=== PATIENT | male | born 1985 | race Caucasian/White ===

== ENCOUNTER 2017-07-21 08:35 | Emergency (ER) | payer BC, OTHER ==
[2017-07-21 08:53] VITALS: BP 165/112; PULSE 84; TEMP 98; BMI 28.8
--- NOTE | 2017-07-21 09:09 | PDOC ---
History of Present Illness <Dorina Zuniga - Last Filed: 07/21/17 09:16> - General History Source: Patient Exam Limitations: No Limitations - History of Present Illness Initial Comments: 07/21/17 09:32 The patient is a 32-year-old female with no significant past medical history, and presents to the emergency department with an itchy rash for 1 week. He reports the rash started as two bumps on his anterior forearm, and now complains of redness and itchiness at his neck and face as well. He denies any rash on people he has been in contact with. He denies any changes in his diet, skin care, or other habits. The patient denies chest pain, shortness of breath, headache and dizziness. The patient denies fever, chills, nausea, vomit, diarrhea and constipation. The patient denies dysuria, frequency, urgency and hematuria. Allergies: NKDA Past Surgical History: None reported Social History: No toxic habits reported <Diana Chaudhry - Last Filed: 07/21/17 09:34> - General Chief Complaint: Rash Stated Complaint: RASH Time Seen by Provider: 07/21/17 09:09 Past History - Past Medical History Anemia: No Asthma: No Cancer: No Cardiac Disorders: No CVA: No COPD: No CHF: No Dementia: No Diabetes: No GI Disorders: No Disorders: No HTN: No Hypercholesterolemia: No Liver Disease: No Seizures: No Thyroid Disease: No - Surgical History Abdominal Surgery: No Appendectomy: No Cardiac Surgery: No Cholecystectomy: No Lung Surgery: No Neurologic Surgery: No Orthopedic Surgery: Yes (ORIF Both Wrists) - Suicide/Smoking/Psychosocial Hx Smoking History: Never smoked Hx Alcohol Use: Yes (SOCIAL) Drug/Substance Use Hx: No Substance Use Type: None Hx Substance Use Treatment: No <Dorina Zuniga - Last Filed: 07/21/17 09:16> <Diana Chaudhry - Last Filed: 07/21/17 09:34> - Past Medical History Allergies/Adverse Reactions: Allergies Allergy/AdvReac Type Severity Reaction Status Date / Time No Known Allergies Allergy Verified 07/21/17 08:53 Home Medications: Ambulatory Orders Multivitamins [Tab-A-Vit -] 1 tab PO DAILY 06/06/15 Hydrocortisone 2.5% Lotion [Hytone 2.5% Lotion -] 1 applic TP QID #1 bottle 08/07 Review of Systems - Review of Systems Able to Perform ROS?: Yes Comments:: 07/21/17 09:33 GENERAL/CONSTITUTIONAL: No fever or chills. No weakness. HEAD, EYES, EARS, NOSE AND THROAT: No change in vision. No ear pain or discharge. No sore throat. CARDIOVASCULAR: No chest pain or shortness of breath. RESPIRATORY: No cough, wheezing, or hemoptysis. GASTROINTESTINAL: No nausea, vomiting, diarrhea or constipation. GENITOURINARY: No dysuria, frequency, or change in urination. MUSCULOSKELETAL: No joint or muscle swelling or pain. No neck or back pain. SKIN: (+) Itchy rash. NEUROLOGIC: No headache, vertigo, loss of consciousness, or change in strength/ sensation. ENDOCRINE: No increased thirst. No abnormal weight change. HEMATOLOGIC/LYMPHATIC: No anemia, easy bleeding, or history of blood clots. ALLERGIC/IMMUNOLOGIC: No hives or skin allergy. <Diana Chaudhry - Last Filed: 07/21/17 09:34> *Physical Exam - Vital Signs Last Vital Signs Temp Pulse Resp BP Pulse Ox 98 F 84 18 165/112 99 07/21/17 08:51 07/21/17 08:51 07/21/17 08:51 07/21/17 08:51 07/21/17 08:51 <Dorina Zuniga - Last Filed: 07/21/17 09:16> - Vital Signs Last Vital Signs Temp Pulse Resp BP Pulse Ox 98 F 84 18 165/112 99 07/21/17 08:51 07/21/17 08:51 07/21/17 08:51 07/21/17 08:51 07/21/17 08:51 - Physical Exam Comments: 07/21/17 09:33 GENERAL: Awake, alert, and fully oriented, in no acute distress HEAD: No signs of trauma EYES: PERRLA, EOMI, sclera anicteric, conjunctiva clear ENT: Auricles normal inspection, hearing grossly normal, nares patent, oropharynx clear without exudates. Moist mucosa NECK: Normal ROM, supple, no lymphadenopathy, JVD, or masses LUNGS: Breath sounds equal, clear to auscultation bilaterally. No wheezes, and no crackles HEART: Regular rate and rhythm, normal S1 and S2, no murmurs, rubs or gallops ABDOMEN: Soft, nontender, normoactive bowel sounds. No guarding, no rebound. No masses EXTREMITIES: Normal range of motion, no edema. No clubbing or cyanosis. No cords, erythema, or tenderness NEUROLOGICAL: Cranial nerves II through XII grossly intact. Normal speech, normal gait SKIN: Warm, Dry, normal turgor, (+) blanching macular rash to dorsum of hands and forearm along with redness to face and neck. <Diana Chaudhry - Last Filed: 07/21/17 09:34> Medical Decision Making - Medical Decision Making 07/21/17 09:16 pt presents to the ED with pruritic rash to the dorsum of his hands, forearms, face and neck. Denies systemic complaints. Rash appears consistent with contact dermatitis, although patient does not report exposures. Will discharge home with rx for hydrocortisone cream. <Dorina Zuniga - Last Filed: 07/21/17 09:16> *DC/Admit/Observation/Transfer - Discharge Dispostion Admit: No <Dorina Zuniga - Last Filed: 07/21/17 09:16> - Attestations Scribe Attestion: 07/21/17 09:33 Documentation prepared by Diana Chaudhry, acting as director of medical staff services for Dorina Zuniga MD, MD/DO. <Diana Chaudhry - Last Filed: 07/21/17 09:34> Diagnosis at time of Disposition: Rash and nonspecific skin eruption - Discharge Dispostion Disposition: HOME Condition at time of disposition: Good - Prescriptions Prescriptions: Hydrocortisone 2.5% Lotion [Hytone 2.5% Lotion -] 1 applic TP QID #1 bottle - Patient Instructions Printed Discharge Instructions: DI for Rash Additional Instructions: return to the ED for rash with fever, spreading rash, new or changing symptoms. - Post Discharge Activity Forms/Work/School Notes: Back to Work
== END 2017-07-21 10:00 | disposition home or self-care (01) ==
LOC: JER 08:35
DX: R21 Rash and other nonspecific skin eruption (principal)
CPT/HCPCS: 99281-25

== ENCOUNTER 2020-01-30 01:27 | Emergency (ER) | payer OTHER ==
--- NOTE | 2020-01-30 01:43 | PDOC ---
History of Present Illness - General Stated Complaint: RIGHT ABDOMINAL PAIN Time Seen by Provider: 01/30/20 01:43 History Source: Patient Exam Limitations: No Limitations - History of Present Illness Initial Comments: 34 y.o male with no significant medical history presents to the ED with right sided abdominal pain. He states that it worsens when lifting heavy objects, and become increasingly bothersome. Radiates to the right low back. The pain isn't associated with eating. He denied fever, nausea, vomiting, testicular pain/swelling, diarrhea, constipation, urinary symptoms. 01/30/20 02:18 Past History - Medical History Allergies/Adverse Reactions: Allergies Allergy/AdvReac Type Severity Reaction Status Date / Time No Known Allergies Allergy Verified 01/30/20 01:51 Home Medications: Ambulatory Orders NK [No Known Home Medication] 07/21/17 Anemia: No Asthma: No Cancer: No Cardiac Disorders: No CVA: No COPD: No CHF: No Dementia: No Diabetes: No GI Disorders: No Disorders: No HTN: No Hypercholesterolemia: No Liver Disease: No Seizures: No Thyroid Disease: No - Surgical History Abdominal Surgery: No Appendectomy: No Cardiac Surgery: No Cholecystectomy: No Lung Surgery: No Neurologic Surgery: No Orthopedic Surgery: Yes (ORIF Both Wrists) - Psycho-Social/Smoking History Smoking History: Never smoked Review of Systems - Review of Systems Constitutional: No: Chills, Fever Respiratory: No: Cough, Shortness of Breath Cardiac (ROS): No: Chest Pain ABD/GI: No: Constipated, Diarrhea, Nausea, Vomiting : No: Burning, Dysuria, Frequency Neurological: No: Headache All Other Systems: Reviewed and Negative *Physical Exam - Physical Exam General Appearance: Yes: Nourished, Appropriately Dressed. No: Apparent Distress HEENT: positive: EOMI Respiratory/Chest: positive: Lungs Clear, Normal Breath Sounds Cardiovascular: positive: Regular Rhythm, Regular Rate, S1, S2 Gastrointestinal/Abdominal: positive: Soft. negative: Tender, Guarding, Rebound, Tenderness, Hernia Extremity: positive: Normal Inspection Integumentary: positive: Normal Color, Dry, Warm Neurologic: positive: Fully Oriented, Alert Medical Decision Making - Medical Decision Making 34 y.o male with w/o medical history presents to the ED with right sided abdominal pain that's worse when lifting heavy objects. Denies nausea/vomiting, testicular pain/swelling, or urinary symptoms. No abdominal tenderness on abdominal exam, no mass, no hernia, no testicular swelling. Unlikely torsion or appendicitis. Pain related to movement and likely musculoskeletal in nature. The patient stated that because it's making work difficulty, he would like documentation to provide to his work. Patient is safe to be discharged home without further workup. Discharge - Discharge Information Problems reviewed: Yes Clinical Impression/Diagnosis: Strain of abdominal muscle Qualifiers: Encounter type: initial encounter Qualified Code(s): S39.011A - Strain of muscle, fascia and tendon of abdomen, initial encounter Condition: Stable Disposition: HOME - Admission No - Follow up/Referral Referrals: Suresh Reddy MD [Staff Physician] - Herberth Cortez MD [Staff Physician] - - Patient Discharge Instructions Patient Printed Discharge Instructions: DI for Groin Hernia, DI for Groin Strain, DI for Abdominal Muscle Strain Additional Instructions: You came to the ED for persistent right-sided abdominal pain that worsens when lifting heavy objects. We examined you but didn't find any signs of abdominal trauma, hernia, or mass. Likely due to abdominal muscle and/or oblique muscle strain, but potentially a small right inguinal hernia. You can take tylenol or motrin at home for pain. You should follow up with general surgery. - Post Discharge Activity Work/Back to School Note: Back to Work
--- NOTE | 2020-01-30 01:44 | PDOC ---
Attending Attestation - Resident Resident Name: Hipolito Adorno - ED Attending Attestation I have performed the following: I have examined & evaluated the patient, The case was reviewed & discussed with the resident, I agree w/resident's findings & plan - HPI HPI: 01/30/20 03:00 Pt comes wtih RLQ pain and right testicular pain when he lifets heavy things at work. - Physicial Exam PE: 01/30/20 04:51 Pt has no ingunal defect that I could feel; however needs eval by a geb surgeon for potential ingunal hernia eval and repair Pt has no fever and chills No abd pain and no rebound and no guarding No flank pain and normal genetalia/testicles. - Medical Decision Making 01/30/20 04:52 Pt stable to go home. Discharge - Discharge Information Problems reviewed: Yes Clinical Impression/Diagnosis: Strain of abdominal muscle Qualifiers: Encounter type: initial encounter Qualified Code(s): S39.011A - Strain of muscle, fascia and tendon of abdomen, initial encounter Condition: Stable Disposition: HOME - Follow up/Referral Referrals: Herberth Cortez MD [Staff Physician] - Suresh Reddy MD [Staff Physician] - - Patient Discharge Instructions Patient Printed Discharge Instructions: DI for Groin Hernia, DI for Groin Strain, DI for Abdominal Muscle Strain Additional Instructions: You came to the ED for persistent right-sided abdominal pain that worsens when lifting heavy objects. We examined you but didn't find any signs of abdominal trauma, hernia, or mass. Likely due to abdominal muscle and/or oblique muscle strain, but potentially a small right inguinal hernia. You can take tylenol or motrin at home for pain. You should follow up with general surgery. - Post Discharge Activity Work/Back to School Note: Back to Work
[2020-01-30 01:52] VITALS: BP 135/81; PULSE 74; TEMP 98.6; BMI 28.8
== END 2020-01-30 03:05 | disposition home or self-care (01) ==
LOC: JER 01:27
DX: S39.011A Strain of muscle, fascia and tendon of abdomen, initial encounter (principal)
CPT/HCPCS: 99283-25